=== PATIENT | female | born 1985 ===

== ENCOUNTER 2017-08-14 10:30 | Day surgery (SDC) | payer OTHER ==
[2017-08-14] VITALS (9 sets, daily range): BP systolic 111–126; BP diastolic 60–66
[~2017-08-14] VITALS: Ht 167.6 cm; Wt 81.6 kg
--- NOTE | 2017-08-14 07:07 | Pre-Procedure Note/Attestation ---
Pre-Procedure Note/Attestation Complete Prior to Procedure Planned Procedure: left Procedure Narrative: left shoulder scope, sad, mini joe, anterior labral repair Indications for Procedure Pre-Operative Diagnosis: left shoulder impingement, labral tear Attestation I attest that I discussed the nature of the procedure; its benefits; risks and complications; and alternatives (and the risks and benefits of such alternatives ), prior to the procedure, with the patient (or the patient's legal small business sales representative). I attest that, if there was a reasonable possibility of needing a blood transfusion, the patient (or the patient's legal small business sales representative) was given the [facility] standardized written summary, pursuant to the Toni Cyr Blood Safety Act ([place] Health and Safety Code # 1645, as amended). I attest that I re-evaluated the patient just prior to the surgery and that there has been no change in the patient's H&P, except as documented below: none ERICA GARCIA Aug 14, 2017 07:06
[~2017-08-14 10:30] MED LIST: ceFAZolin 1 GM premix IV ONE; ceFAZolin sod 1gm in NS 55ml IVPB ONE; celeBREX 200mg Cap **SURGERY PATIENTS ONLY ORAL ONE; oxyCONTIN 20mg tab ORAL ONE
[2017-08-14] MEDS ORDERED: Midazolam 2mg/2ml Inj ONE (10:31)
[2017-08-14] MEDS ORDERED: Propofol 200mg/20ml IV ONE (10:31)
[2017-08-14] MEDS ORDERED: LR 1000ml ONE (10:31)
[2017-08-14] MEDS ORDERED: Sterile Water For Irrig 2000ml IRRIG ONE (10:31)
[2017-08-14] MEDS ORDERED: Alfentanil 2ml Inj ONE ×2 (10:31)
[2017-08-14] MEDS ORDERED: Lidocaine 1% MPF 10mg/ml 5ml ONE (10:31)
[2017-08-14] MEDS ORDERED: BIOTIN5000 MCG PO (11:06)
[2017-08-14] MEDS ORDERED: VITAMIN D1000 UNI1 ORAL (11:06)
[2017-08-14] MEDS ORDERED: PROBIOTIC1 EAC5 PO (11:06)
[2017-08-14] MEDS ORDERED: LR 1000ml 1,000 ML IVLG SCH (11:17)
--- NOTE | 2017-08-14 11:19 | Anethesia Preoperative Eval ---
Anesthesia Pre-op PMH/ROS General Date of Evaluation: Aug 14, 2017 Time of Evaluation: 12:36 Anesthesiologist: Jadon ASA Score: ASA 2 Mallampati Score Class I : Soft palate, uvula, fauces, pillars visible Class II: Soft palate, uvula, fauces visible Class III: Soft palate, base of uvula visible Class IV: Only hard plate visible Mallampati Classification: Class II Surgeon: Maxim Diagnosis: L Shoulder Pain Surgical Procedure: L Shoulder Arthroscopy, RCR Anesthesia History: none Family History: no anesthesia problems Allergies: Coded Allergies: METRONIDAZOLE (Verified Allergy, Unknown, 08/09/17) Medications: see eMAR Past Medical History Other: obesity - BMI 36 PSxH Narrative: L Knee ACL, R ovarian Cyst Removed Anesthesia Pre-op Phys. Exam Physician Exam Last Vital Signs Date Time Temp Pulse Resp B/P (MAP) Pulse Ox O2 Delivery O2 Flow Rate FiO2 08/14/17 11:09 98.1 66 18 116/66 97 Room Air 98.1 Constitutional: NAD Neurologic: CN 2-12 intact Cardiovascular: RRR Respiratory: CTA Gastrointestinal: S/NT/ND Airway Exam Mallampati Score: Class II MO: limited ROM: limited Teeth: intact Anesthesia Pre-op A/P Risk Assessment & Plan Assessment: ASA 2 Plan: GA, BIS, L Supraclavicular Block Status Change Before Surgery: No Pre-Antibiotics Dru Grams Ancef IV Given Within 1 Hr of Incision: Yes Time Given: 13:06 Socrates Diop MD Aug 14, 2017 11:19
[2017-08-14] MEDS ORDERED: oxyCODONE HCL/Acetaminophen 5/325mg ORAL PRN (11:30)
[2017-08-14] MEDS ORDERED: LORazepam Inj 2mg/ml 1ml IV PRN (11:30)
[2017-08-14] MEDS ORDERED: Midazolam 2mg/2ml Inj IVP PRN (11:30)
[2017-08-14] MEDS ORDERED: fentaNYL 100 mcg/2 mL IV PRN (11:30)
[2017-08-14] MEDS ORDERED: Labetalol 5mg/ml 20ml vial IV PRN (11:30)
[2017-08-14] MEDS ORDERED: Norco 5mg/325mg tab ORAL PRN ×2 (11:30→14:15)
[2017-08-14] MEDS ORDERED: Atropine Inj 1mg/10ml Syr IV PRN (11:30)
[2017-08-14] MEDS ORDERED: DiphenhydrAMINE 50mg/ml Inj IVP PRN (11:30)
[2017-08-14] MEDS ORDERED: Ketorolac 30mg Inj IV PRN ×2 (11:30)
[2017-08-14] MEDS ORDERED: HYDROcodone/Acetamin 7.5/325 tab ORAL PRN (11:30)
[2017-08-14] MEDS ORDERED: Hydromorphone 0.5mg/0.5ml inj IVP PRN (11:30)
[2017-08-14] MEDS ORDERED: Ropivacaine 5mg/ml Vial 30ml INJ ONE (12:16)
--- NOTE | 2017-08-14 13:27 | Immediate Post-Op Evaluation ---
Immediate Post-Op Evalulation Immediate Post-Op Evalulation Procedure: L Shoulder Arthroscopy, RCR Date of Evaluation: Aug 14, 2017 Time of Evaluation: 15:29 IV Fluids: 600 LR Blood Products: 0 Estimated Blood Loss: 7 Urinary Output: 0 Blood Pressure Systolic: 125 Blood Pressure Diastolic: 68 Pulse Rate: 84 Respiratory Rate: 16 O2 Sat by Pulse Oximetry: 99 Temperature (Fahrenheit): 98.4 Pain Score (1-10): 1 Nausea: No Vomiting: No Complications 0 Patient Status: awake, reacts, patent, none Hydration Status: adequate Dru Grams Ancef IV Given Within 1 Hr of Incision: Yes Time Given: 13:06 Socrates Diop MD Aug 14, 2017 13:27
--- NOTE | 2017-08-14 13:27 | 48 Hour Post Anesthesia Eval ---
Post Anesthesia Evaluation Procedure: L Shoulder Arthroscopy, RCR Date of Evaluation: Aug 14, 2017 Time of Evaluation: 17:43 Blood Pressure Systolic: 123 0: 64 Pulse Rate: 64 Respiratory Rate: 18 Temperature (Fahrenheit): 98.6 O2 Sat by Pulse Oximetry: 100 Airway: patent Nausea: No Vomiting: No Pain Intensity: 1 Hydration Status: adequate Cardiopulmonary Status: Stable Mental Status/LOC: patient returned to baseline Follow-up Care/Observations: 0 Post-Anesthesia Complications: 0 Follow-up care needed: ready to discharge Socrates Diop MD Aug 14, 2017 13:27
[2017-08-14] MEDS ORDERED: HYDROmorphone 1mg/ml Carpuject SUBQ PRN (14:15)
[2017-08-14] MEDS ORDERED: D5 1/2NS 1,000 ML IV SCH (14:15)
[2017-08-14] MEDS ORDERED: Tylenol #3 tab (300mg/30mg) ORAL PRN (14:15)
[2017-08-14] MEDS ORDERED: NS Irrig 4000ml IRRIG ONE (14:20)
--- NOTE | 2017-08-14 15:05 | Brief Operative Note ---
Immediate Post Operative Note Operative Note Chief Complaint: left shoulder instability Pre-op Diagnosis: left shoulder instability Procedure: left shoulder scope, labral repair, sad, mini joe Post-op Diagnosis: same as pre-op Findings: consistent w/pre-op dx studies Surgeon: md damon Face Painter: arun nieto Anesthesiologist: md reina Anesthesia: general, regional Specimen: none Complications: none Condition: stable Fluids: ns Estimated Blood Loss: minimal Drains: none Implant(s) used?: Yes - biomet MEGAN NIETO Aug 14, 2017 15:05
--- NOTE | 2017-08-14 22:45 | Operative Note - Dictated ---
DATE OF OPERATION: 08/14/2017 PREOPERATIVE DIAGNOSES: 1. Left shoulder anterior instability with labral tearing. 2. Left shoulder impingement. POSTOPERATIVE DIAGNOSES: 1. Left shoulder anteroinferior labral tearing with detachment from glenoid with instability. 2. Left shoulder large subacromial bone spur with impingement. PROCEDURES: 1. Left shoulder arthroscopy and extensive intra-articular shaving. 2. Left shoulder anterior capsule labral complex repair with repair of the anteroinferior glenohumeral ligament with plicating balancing space posteriorly. 3. Left shoulder subacromial bursoscopy, bursectomy, subacromial decompression. SURGEON: Bill Pan M.D. CIVIL DESIGN TECHNICIAN: Maribell Ricks PA-C. Ornamental Metal Erector was present during the actual operative portion of the case and was important and essential part of the operation. During the operation, the creative assistant held and operated the arthroscopic camera for visualization, assisted by manipulating the arm to help with visualization, and helped with essential parts of the repair process as necessary such as operating surgical instruments under surgeon supervision, suture management, and wound closures. ANESTHESIOLOGIST: Dr. Diop. ANESTHESIA: General LMA anesthesia combined with interscalene block for postoperative pain management. ESTIMATED BLOOD LOSS: Minimal. COMPLICATIONS: None. SURGICAL INDICATION: The patient is a 32-year-old female who sustained the above injury to her shoulder. The patient was treated non-operative initially, but this did not alleviate the patients symptoms. Therefore, after discussing all non-surgical and surgical options, and discussing all foreseeable risk and benefits of surgery, the patient opted for surgical treatment as described above. PATIENT POSITIONING: The patient was brought to the operating room table and was placed on the operating room table. All pressure points were well padded. General anesthesia was induced and the patient was then placed in the lateral decubitus position. All pressure points were well padded again and an axillary roll was placed. The patient's shoulder was then prepped and draped in the usual sterile fashion. Time-out was performed and the appropriate preoperative antibiotic was given by the anesthesiologist. EXAMINATION OF SHOULDER UNDER ANESTHESIA: The shoulder was examined under anesthesia with all muscles well relaxed. The shoulder was forward flexed, abducted, and was placed through full range of external and internal rotation. The anterior, posterior, and inferior stability of the shoulder was checked. The exam revealed no evidence of adhesive capsulitis and there was evidence of instability with anteroinferior instability. PORTAL PLACEMENT: The posterior portal was established 2 cm inferior and 1 cm medial to the edge of the posterior acromion. A 1-cm skin incision was made using an #11 blade and using the blunt obturator, the cannula was gently placed through the capsule. The mid-glenoid portal was established just lateral to the coracoid process under direct visualization. Direction of the cannula was first established using a spinal needle, and subsequently, the cannula was placed through the capsule with a blunt obturator. The anterosuperior cannula was established under direct visualization off the anterolateral edge of the acromion and just anterior to the biceps tendon through the rotator interval. The direction of cannula was first established using a spinal needle, and subsequently, the cannula was placed through the capsule with a blunt obturator. DIAGNOSTIC ARTHROSCOPY: The biceps tendon was probed and pulled through the joint for visualization. It appeared normal. The biceps anchor was palpated with a probe and was visualized. It appeared well attached and there was no evidence of SLAP tear. The posterior labrum and axillary recess was visualized. This was normal and there was no evidence of loose cartilage or fragments in this area. The glenoid articular surface was visualized and it appeared normal. The articular surface of the rotator cuff was visualized and probed next. There was no evidence of articular-sided rotator cuff tear extending from the supraspinatus back to the posterior cuff. The humeral head articular surface was then visualized. There was no evidence of articular cartilage damage. Next the anterior labrum, middle glenohumeral ligament, subscapularis tendon, and the anteroinferior glenohumeral ligament were evaluated. The subscapularis was intact, however, there was a large labral tear anteroinferiorly at a 5:30 position. This was displacing and anteroinferior glenohumeral ligament was unstable. At this point, the scope was moved to the mid-glenoid portal and the posterior structures including the posterior labrum, posterior capsule, and posterior cuff were visualized. These structures were completely normal. The subscapularis recess was devoid of any loose bodies and the anterior capsule was well attached to the humeral neck. The middle and anteroinferior glenohumeral ligament was visualized. Again, anteroinferior glenohumeral ligament was unstable with anterior labral tearing. OPERATIVE DEBRIDEMENTS AND REPAIR: Care was given to all partial-thickness tears and frayed structures in the shoulder joint. The frayed rotator cuff and labrum was debrided using a shaver initially through the anterior portal and subsequently through the posterior portal to complete the debridement. This allowed for smooth debridement of all affected structures and all loose fragments were removed. The scope was then placed in the anterior and superior cannulae for visualization. Through this posterior cannula, initially care was given to the posterior capsule. The posterior capsule was first prepared using a rasp to create microbleeding. Using standard suture-passing instrument, a posterior pinch- tuck plication-balancing suture was placed in the posteroinferior glenohumeral ligament through the labrum in a horizontal-mattress fashion. The suture was then placed outside the posterior cannula and was tied after completion of anterior repair using Revo nonsliding knot with alternating-post half hitches. Then, through the mid-glenoid cannula, care was given to the torn anterior labrum. The scarred portion of anterior labrum was first mobilized with the elevator off the glenoid neck. Once this was accomplished, the mobilization was taken more inferior all the way down to the 6 o'clock position of the glenoid to allow transfer of the labrum with attached anteroinferior glenohumeral ligament superiorly. The glenoid rim was then prepared by debriding it using a shaver and bur to provide bleeding bone for accepting labrum and ligament. Using the guide, a drill hole was made at a 5:30 position of the glenoid, 1 to 2 mm medial to the margin of the articular cartilage on the glenoid surface. The sutures were loaded with nonabsorbable #2 strong sutures. The security of the anchor inside the bone was checked and it was assured that the anchor was well seated and not proud. Using standard suture-passing instrument and using pinch-tuck technique, the anteroinferior glenohumeral ligament was shifted from inferior to anterosuperior direction and was incorporated in the labral bite. The suture was then passed through the capsule-labral complex and was secured using a SMC sliding knot followed by three alternating half hitches. This process provided excellent stability of the glenoid labrum. The stability was checked using a probe and it appeared to be perfect. DIAGNOSTIC BURSOSCOPY AND SUBACROMIAL DECOMPRESSION: The subacromial bursa was entered from the posterior portal. The anterior portal was established under the CA ligament using a switching stick. Subacromial arthroscopy was initiated. There was extensive bursitis and thickened and inflamed bursa tissue present. The CA ligament appeared to be scuffed and frayed. The shaver was placed through the anterior cannula and debridement of the hypertrophic bursa tissue was accomplished. Once visualization was adequate, a lateral portal was established using a blunt trochar in the mid portion of the acromion bone in the anterior-posterior direction and approximately 2 cm lateral to the lateral edge of the acromion. Using combination of shaver and electrocautery, the CA ligament was released from the undersurface of the acromion and a complete bursectomy was accomplished. At this point, a subacromial decompression was performed using a shayy initially taking off 5-8 mm of the anterolateral edge of the acromion from the lateral portal and viewing from the posterior portal. Then the lateral border of the undersurface of the acromion was decompressed to the same depth as the anterolateral edge. A posterior trough was then created in the acromion in line with the posterior edge of the clavicle. At this point, the scope was placed in the lateral portal and the subacromial decompression was performed from the posterior portal decompressing the undersurface of the acromion to dept of 5-8 mm. The decompression was performed anterior to the previously marked trough all the way medially to the level of the AC joint. At all times, care was given not to take off too much bone in order to avoid risk of fracture of the acromion. An excellent subacromial decompression was performed in this fashion. At this point, the bursal side of the rotator cuff was examined. All the bursa over the rotator cuff was removed and the rotator cuff was examined with a probe. The arm was placed into external rotation, neutral, and then internal rotation and there was no evidence of rotator cuff tear. The scope was then placed in the posterior portal and the subacromial decompression was rechecked to assure there is no area of bone spur that would be still impinging onto the rotator cuff. CONDITION AT DISCHARGE FROM OPERATING ROOM: The skin was re-approximated and sterile dressing and sling were applied. All lap counts and instrument counts were correct. The patient tolerated the procedure well without complications and was taken to the recovery room in stable conditions. Bill Pan M.D. DR: Liana JOB#: [id number] CC:
== END 2017-08-14 17:00 | disposition home or self-care (01) ==
LOC: SUR 10:30
DX: S43.402A Unspecified sprain of left shoulder joint, initial encounter (principal); M75.42 Impingement syndrome of left shoulder; Z88.8 Allergy status to other drugs, medicaments and biological substances; X58.XXXA Exposure to other specified factors, initial encounter; Y93.9 Activity, unspecified; Y92.9 Unspecified place or not applicable
CPT/HCPCS: 29807; 29823; 81025; J0690; J2250; J2704; J2795; J3490; J7120; 94003; 94150; C1713